=== PATIENT | female | born 1970 | race Caucasian/White ===

== ENCOUNTER 2025-04-06 10:14 | Day surgery (SDC) | payer BC, SELFPAY ==
[2025-04-06] VITALS (7 sets, daily range): BP systolic 131–164; BP diastolic 69–85
[2025-04-06 11:18] LABS: Glucose - Point of Care 92 mg/dl (70-99)
--- NOTE | 2025-04-06 12:36 | ITS.CL.PACE ---
Practical Nurse Clinical Coordinator - Pacemaker Implant
Pacemaker Implant
Procedure Report:
PACEMAKER GENERATOR CHANGE
Date of Procedure: April 06, 2025
Primary Binman: Dr. Daniel Rosales
PROCEDURES:
1. Removal of dual chamber PPM generator at [facility]
2. Implant of new dual chamber PPM generator
INDICATION FOR PROCEDURE:
1. PM generator at [facility]
HISTORY:
Prior AV alok reentry ablation at [facility] who presented in complete heart block and I implanted a dual-chamber pacemaker in 2016 for symptomatic complete heart block. Generator is now at [facility]
'Time out' called and confirmed
Antibiotic: Ancef
Sedation/anesthesia: Conscious
EXPLANTED PPM GENERATOR: Medtronic A2DR01 serial number [id number] implanted 2015
IMPLANTED PPM GENERATOR:���Medtronic W1 DR 01 serial number [id number]
Existing RA lead: 5076 serial number [id number] implanted 2015
Existing RVLead: 5076 serial number [id number] implanted 2015
DEVICE TESTING:����������
Sensing:����RA 3.6 mV,���RV 0 mV�������
Capture:����RA 0.5 V@0.5ms,��RV 1.5 V@0.5ms��
Ohms:��������RA 399���RV 418����������
FINAL PROGRAMMING
Hima Pacing: DDDR���60-130 ppm
COMPLICATIONS:
None
CONCLUSIONS:
1. Successful explant of dual chamber permanent pacemaker
2. Successful implant of dual chamber permanent pacemaker
RECOMMENDATIONS:
1. Routine post-op care and prophylactic antibiotics
2. In-Office wound check in 5-10 days.
3. Office interrogation in 6-8 weeks
Copy to: Dr. Reuben Rosales
== END 2025-04-06 14:00 | disposition home or self-care (01) ==
LOC: CATH 10:14
PROVIDERS: ATTENDING PHYSICIAN Internal Medicine Cardiovascular Disease; FAMILY PHYSICIAN Family Medicine
DX: Z45.010 Encounter for checking and testing of cardiac pacemaker pulse generator [battery] (principal); I44.2 Atrioventricular block, complete; I47.10 Supraventricular tachycardia, unspecified; E11.9 Type 2 diabetes mellitus without complications; Z85.820 Personal history of malignant melanoma of skin; Z82.49 Family history of ischemic heart disease and other diseases of the circulatory system; Z79.84 Long term (current) use of oral hypoglycemic drugs; Z79.85 Long-term (current) use of injectable non-insulin antidiabetic drugs
CPT/HCPCS: 33228; 82962; C1785